=== PATIENT | male | born 1970 | race Caucasian/White ===

== ENCOUNTER 2019-04-15 21:47 | Emergency (ER) | payer SELFPAY ==
[2019-04-15 21:56] VITALS: BP 124/89
[2019-04-15 23:00] LABS: ABS Eosinophils 0.2 10^3/ul (0-0.6); ABS Lymphocytes 2.8 10^3/ul (1.0-4.8); ABS Monocytes 1.1 10^3/ul (0-0.8); ABS Neutrophils 6.1 10^3/ul (1.5-7.7); Eosinophil % 1.8 %; Hematocrit 46 % (42-52); Hemoglobin 15.3 g/dL (14.0-18.0); Lymphocyte % 27.1 %; Mean Corpuscular HGB Conc 34 g/dL (31-36); Mean Corpuscular Hemoglobin 31 pg (27-31); Mean Corpuscular Volume 91 fL (80-94); Mean Platelet Volume 6.9 fL (7.4-10.4); Nucleated Red Blood Cells % 0.1; Platelet Count 403 10^3/uL (150-450); Red Blood Count 4.98 10^6 /uL (4.18-5.48); Red Cell Distribution Width 14 % (10.5-15); White Blood Count 10.3 10^3/uL (3.5-10.8)
[2019-04-15 23:21] LABS: Albumin 4.3 g/dL (3.2-5.2); Albumin/Globulin Ratio 1.3 (1-3); Calcium 9.5 mg/dL (8.6-10.3); EGFR African American 144.4 (>60); EGFR Non-African American 119.4 (>60); Globulin 3.2 g/dL (2-4); Potassium 3.9 mmol/L (3.5-5.0); Total Bilirubin 0.3 mg/dL (0.2-1.0); Total Protein 7.5 g/dL (6.4-8.9)
--- NOTE | 2019-04-15 23:24 | ED ---
Skin Complaint - HPI Summary HPI Summary: This patient is a 48 year old M brought to ED via EMS with a chief complaint of rash on left foot since a month ago. The rash started from a small hole on the top of his foot and has gradually spread to cover the majority of the foot. The patient has not had anything like this before. Patient is homeless and walks around with wet feet constantly. Dr. Balderrama assessed the patient upon arrival. Patient does not take any medications. The patient rates the pain 0/10 in severity. Symptoms aggravated by nothing. Symptoms alleviated by nothing. Patient denies fever. PMHx of no DM, HTN, HLD. Patient drinks alcohol. - History of Current Complaint Chief Complaint: EDExtremityLower Time Seen by Provider: 04/15/19 21:50 Stated Complaint: LEFT FOOT PAIN PER EMS Pain Intensity: 0 - Allergy/Home Medications Allergies/Adverse Reactions: Allergies Allergy/AdvReac Type Severity Reaction Status Date / Time No Known Allergies Allergy Verified 04/15/19 21:55 PMH/Surg Hx/FS Hx/Imm Hx Endocrine/Hematology History: Denies: Hx Diabetes Cardiovascular History: Denies: Hx Hypercholesterolemia, Hx Hypertension - Surgical History Surgery Procedure, Year, and Place: Denies Infectious Disease History: No Infectious Disease History: Denies: Traveled Outside the [place] in Last 30 Days - Family History Known Family History: Positive: Non-Contributory - Social History Alcohol Use: Daily Hx Substance Use: No Substance Use Type: Reports: None Hx Tobacco Use: No Smoking Status (MU): Never Smoked Tobacco Review of Systems Negative: Fever Positive: Rash - Left foot All Other Systems Reviewed And Are Negative: Yes Physical Exam - Summary Physical Exam Summary: Appearance: Well-appearing, Well-nourished, lying in bed comfortable Skin: left dorsal foot cellulitis, some weeping but no abscess or streaking Eyes: sclera anicteric, no conjunctival pallor ENT: mucous membranes moist Neck: deferred Respiratory: No signs of respiratory distress Cardiovascular: Appears well perfused, pulses are nml Abdomen: deferred Musculoskeletal: Moving all 4 extremities without obvious discomfort Neurological: Awake and alert, mentation is normal, speech is fluent and appropriate Psychiatric: affect is normal, does not appear anxious or depressed Triage Information Reviewed: Yes Vital Signs On Initial Exam: Initial Vitals Temp Pulse Resp BP Pulse Ox 98.1 F 91 16 124/89 92 04/15/19 21:52 04/15/19 21:52 04/15/19 21:52 04/15/19 21:52 04/15/19 21:52 Vital Signs Reviewed: Yes Diagnostics - Vital Signs Vital Signs Temp Pulse Resp BP Pulse Ox 04/15/19 21:52 98.1 F 91 16 124/89 92 - Laboratory Lab Results: Lab Results 04/15/19 04/15/19 Range/Units 22:46 22:46 WBC 10.3 (3.5-10.8) 10^3/uL RBC 4.98 (4.18-5.48) 10^6 /uL Hgb 15.3 (14.0-18.0) g/dL Hct 46 (42-52) % MCV 91 (80-94) fL MCH 31 (27-31) pg MCHC 34 (31-36) g/dL RDW 14 (10.5-15) % Plt Count 403 (150-450) 10^3/uL MPV 6.9 L (7.4-10.4) fL Neut % (Auto) 59.7 % Lymph % (Auto) 27.1 % [place] % (Auto) 11.0 % Eos % (Auto) 1.8 % Baso % (Auto) 0.4 % Absolute Neuts (auto) 6.1 (1.5-7.7) 10^3/ul Absolute Lymphs (auto) 2.8 (1.0-4.8) 10^3/ul Absolute Monos (auto) 1.1 H (0-0.8) 10^3/ul Absolute Eos (auto) 0.2 (0-0.6) 10^3/ul Absolute Basos (auto) 0.0 (0-0.2) 10^3/ul Absolute Nucleated RBC 0.0 10^3/ul Nucleated RBC % 0.1 Sodium 140 (135-145) mmol/L Potassium 3.9 (3.5-5.0) mmol/L Chloride 99 L (101-111) mmol/L Carbon Dioxide 31 (22-32) mmol/L Anion Gap 10 (2-11) mmol/L BUN 7 (6-24) mg/dL Creatinine 0.70 (0.67-1.17) mg/dL Est GFR ( Amer) 144.4 (>60) Est GFR (Non-Af Amer) 119.4 (>60) BUN/Creatinine Ratio 10.0 (8-20) Glucose 85 (70-100) mg/dL Calcium 9.5 (8.6-10.3) mg/dL Total Bilirubin 0.30 (0.2-1.0) mg/dL AST 25 (13-39) U/L ALT 12 (7-52) U/L Alkaline Phosphatase 90 (34-104) U/L Total Protein 7.5 (6.4-8.9) g/dL Albumin 4.3 (3.2-5.2) g/dL Globulin 3.2 (2-4) g/dL Albumin/Globulin Ratio 1.3 (1-3) Result Diagrams: 04/15/19 22:46 04/15/19 22:46 Lab Statement: Any lab studies that have been ordered have been reviewed, and results considered in the medical decision making process. Course/Dx - Course Course Of Treatment: This patient is a 48 year old M brought to ED via EMS with a chief complaint of rash on left foot since a month ago. Blood work obtained. In the ED course, patient received Keflex and Motrin. Patient will be discharged with dx of cellulitis of left foot. Patient understands and agreed with this plan, then stated he could not walk on the foot (though in fact he earlier stated he had been walking on it "1000 miles a day" earlier in the visit ) and became quite irate upon learning he was going to be discharged. He became verbally abusive to staff and was escorted out by security. - Diagnoses Provider Diagnoses: Cellulitis of left foot Discharge - Sign-Out/Discharge Documenting (check all that apply): Patient Departure - Discharge Patient Received Moderate/Deep Sedation with Procedure: No - Discharge Plan Condition: Good Disposition: HOME Prescriptions: Cephalexin CAP* [Keflex CAP*] 500 mg PO QID #40 cap Patient Education Materials: Cellulitis (ED) Referrals: [facility] [Outside] - As Soon As Possible - Billing Disposition and Condition Condition: GOOD Disposition: Home - Attestation Statements Document Initiated by Scribe: Yes Documenting Scribe: Chandra Sorto Provider For Whom Scribe is Documenting (Include Credential): Lul Balderrama MD Scribe Attestation: Chandra Armenta, scribed for Lul Balderrama MD on 04/16/19 at 0318. Scribe Documentation Reviewed: Yes Provider Attestation: The documentation as recorded by the scribe, Chandra Sorto accurately reflects the service I personally performed and the decisions made by me, Lul Balderrama MD Status of Scribe Document: Viewed
[2019-04-15] MEDS ORDERED: Cephalexin CAP* 500 MG PO ONE (23:46)
[2019-04-15] MEDS ORDERED: Ibuprofen TAB* 400 MG PO ONE (23:46)
== END 2019-04-16 00:09 | disposition home or self-care (01) ==
LOC: ED 21:47
DX: L03.116 Cellulitis of left lower limb (principal); R21 Rash and other nonspecific skin eruption
CPT/HCPCS: 36415; 80053; 85025; 99282; A9270-GY